=== PATIENT | female | born 1955 | race Caucasian/White ===

== ENCOUNTER 2019-11-27 17:00 | Emergency (ER) | payer MEDICARE, MEDICAID, SELFPAY ==
[2019-11-27 17:13] VITALS: BP 115/73; PULSE 87; RESP 18; TEMP 36.7; O2SAT 96; BMI 21.5
--- NOTE | 2019-11-27 17:42 | W.ED.SKABFB ---
HPI - Skin/Abscess/Foreign Bdy General: Chief complaint: Skin/Abscess/Foreign Body Stated complaint: rash Time Seen by Provider: 11/27/19 17:37 History of Present Illness: HPI narrative: Patient contact with poison daisy other day has rash on her face and arms and it itches complaint: rash Onset (ago): day(s) Tetanus up to date: unsure Location: face, LUE and RUE Severity: moderate Associated symptoms: Deny chills, fever(s), nausea or vomiting Review of Systems Const: Denies: fever(s), chills or body aches Eyes: Denies: change in vision or blurry vision ENMT: Denies: throat pain or nasal congestion Card: Denies: chest pain or dyspnea on exertion Resp: Denies: dyspnea, productive cough or non-productive cough GI: Denies: abdominal pain, nausea or vomiting Musc: Denies: extremity pain Skin/Breast: Reports: rash Neuro: Denies: headache(s) Psych: Denies: anxiety or depression Lazaro/Lymph: Denies: easy bruising PFS ED PFSH: Social History Smoking and tobacco status: current every day smoker Physical Exam Const: COMMON NORMALS: no acute distress, average body habitus and patient oriented x3 HENMT: COMMON NORMALS: normocephalic HEAD & SCALP: normal to inspection and normocephalic FACE & SINUS: normal facial exam Eye: COMMON NORMALS: conjunctivae normal GENERAL EYE: appearance normal, both eyes and all related structures CONJUNCTIVA: Yes conjunctivae normal Neck/C-Spine: COMMON NORMALS: no JVD Chest: COMMONS NORMALS: normal inspection of the chest Resp: COMMON NORMALS: normal respiratory effort and clear to auscultation bilaterally AUSCULTATION: clear to auscultation bilaterally Cardio: COMMON NORMALS: no JVD, regular rate and regular rhythm RATE: regular rate RHYTHM: regular rhythm GI: COMMON NORMALS: Normal to inspection, nondistended, normoactive bowel sounds present Extremity: COMMON NORMALS: normal to inspection and full ROM Neuro: COMMON NORMALS: patient oriented x3 Skin: NARRATIVE SKIN EXAM: Maculopapular rash scattered across face and on both arms Course Vital Signs: Vital signs: Vital Signs Temperature 98.0 F 11/27/19 17:13 Pulse Rate 87 11/27/19 17:13 Respiratory Rate 18 11/27/19 17:13 Blood Pressure 115/73 11/27/19 17:13 Pulse Oximetry 96 11/27/19 17:13 Discharge Plan Discharge Patient Disposition: Home, Self-Care Clinical Impression: Contact dermatitis Qualifiers: Contact dermatitis type: irritant Contact dermatitis trigger: non-food plants Qualified Code(s): L24.7 - Irritant contact dermatitis due to plants, except food Condition: Stable Prescriptions: New Medrol (Erick) 4 mg tablets,dose pack See Rx Instructions .ROUTE .COMPLEX Qty: 21 RF: 0 hydroxyzine HCl 25 mg tablet 25 mg PO Q8H PRN (Reason: itching) Qty: 20 RF: 0 No Action methotrexate sodium 2.5 mg tablet 20 mg PO .weekly RF: 0 Humira 40 mg/0.8 mL syringe kit 40 mg SUBCUT .every two weeks RF: 0 folic acid 1 mg tablet 1 mg PO QDAY RF: 0 Januvia 50 mg tablet 50 mg PO QDAY RF: 0 calcium carbonate-vit D3-min 600 mg calcium- 400 unit tablet 1 tab PO QDAY RF: 0 fluticasone propionate 50 mcg/actuation spray,suspension 1 spray INTRANASAL QDAY RF: 0 senna 8.6 mg capsule 8.6 mg PO QDAY PRNRF: 0 aspirin [Adult Aspirin Regimen] 81 mg tablet,delayed release (DR/EC) 81 mg PO QDAY RF: 0 clopidogrel 75 mg tablet 75 mg PO QDAY RF: 0 clorazepate dipotassium 7.5 mg tablet 7.5 mg PO BID PRNRF: 0 Adult One Daily Multivitamin 0.4 mg tablet PO RF: 0 venlafaxine 150 mg capsule,extended release 24hr 150 mg PO QDAY RF: 0 Breo Ellipta 200-25 mcg/dose blister with device 1 inh INHALATION QDAY RF: 0 Breo Ellipta 100-25 mcg/dose blister with device 1 inh INHALATION QDAY RF: 0 albuterol sulfate 90 mcg/actuation HFA aerosol inhaler 2 puff INHALATION Q6H PRNRF: 0 metformin 1,000 mg tablet 1,000 mg PO BID RF: 0 trazodone 100 mg tablet 150 mg PO .daily at bedtime RF: 0 nitroglycerin [Nitrostat] 0.4 mg tablet, sublingual 0.4 mg SUBLINGUAL Q5M PRNRF: 0 Discharge Orders: Discharge Order (Routine); Ordered 11/27/19 Ordered By: Levi Carrillo Referrals: Roni Corral Jr, MD [Primary Care Provider] - Discharge Diet: Usual diet Discharge Activity: Resume usual activity Patient Instructions: Contact Dermatitis (ED) Activity Restrictions/Additional Instructions: Follow-up with medical provider as directed. Take medications as prescribed. Return to the ER or your medical provider if condition worsens. Please read and understand discharge instructions. If any questions ask please. Can use [id number] hydrocortisone cream as needed Coding Level of Care Code ED Supervisor Files for Vic King
== END 2019-11-27 18:18 | disposition home or self-care (01) ==
PROVIDERS: Emergency Provider Nurse Practitioner Family; PCP Family Medicine
DX: L24.7 Irritant contact dermatitis due to plants, except food (principal); Z79.82 Long term (current) use of aspirin; Z79.02 Long term (current) use of antithrombotics/antiplatelets; Z79.84 Long term (current) use of oral hypoglycemic drugs; F17.210 Nicotine dependence, cigarettes, uncomplicated
CPT/HCPCS: 12345; 99281

== ENCOUNTER → 2020-02-28 13:02 | Outpatient (BNVA) | payer MEDICARE, MEDICAID, SELFPAY | PROVIDERS: PCP Family Medicine; Visit Provider Internal Medicine | DX: M05.79 Rheumatoid arthritis with rheumatoid factor of multiple sites without organ or systems involvement (principal); Z11.59 Encounter for screening for other viral diseases; Z11.1 Encounter for screening for respiratory tuberculosis; Z79.899 Other long term (current) drug therapy; F17.210 Nicotine dependence, cigarettes, uncomplicated | CPT/HCPCS: 36415; 80053; 85651; 86140; 86480; 86705; 86803; 87340; 99213 ==

== ENCOUNTER 2020-05-24 12:58 | Outpatient (CLI) | payer MEDICARE, MEDICAID, SELFPAY ==
[2020-05-24 13:08] VITALS: BP 112/76; PULSE 96; RESP 16; TEMP 36.3; O2SAT 96
--- NOTE | 2020-05-24 14:15 | PC.NURSE ---
1400 Dr. Pizano in room seeing pt.
[2020-05-24 14:46] VITALS: BP 109/71; PULSE 81; RESP 16; O2SAT 95
== END 2020-05-24 12:59 | disposition home or self-care (01) ==
LOC: RHEOACUTE 12:59
PROVIDERS: PCP Family Medicine; Visit Provider Internal Medicine
DX: M05.79 Rheumatoid arthritis with rheumatoid factor of multiple sites without organ or systems involvement (principal); Z79.899 Other long term (current) drug therapy; R25.2 Cramp and spasm
CPT/HCPCS: 80053; 83735; 85025; 96365; 99213; J1602

== ENCOUNTER 2020-07-02 11:16 | Outpatient (CLI) | payer MEDICARE, MEDICAID, SELFPAY ==
[2020-07-02 11:27] VITALS: BP 104/68; PULSE 81; RESP 16; TEMP 36.1; O2SAT 94
[2020-07-02 11:28] VITALS: BMI 20.9
[2020-07-02 12:53] VITALS: BP 114/70; PULSE 80; RESP 16; O2SAT 94
== END 2020-07-02 11:17 | disposition home or self-care (01) ==
LOC: RHEOACUTE 11:18
PROVIDERS: PCP Family Medicine; Visit Provider Internal Medicine
DX: M05.79 Rheumatoid arthritis with rheumatoid factor of multiple sites without organ or systems involvement (principal)
CPT/HCPCS: 96365; J1200; J1602; J2920; J7040

== ENCOUNTER 2021-01-03 19:32 | Emergency (ER) | payer MEDICARE, MEDICAID, SELFPAY ==
[2021-01-03 19:38] VITALS: BP 112/72; PULSE 89; RESP 18; TEMP 36.6; O2SAT 95; BMI 20.7
--- NOTE | 2021-01-03 19:38 | XRR_ITS ---
PROCEDURE INFORMATION: Exam: XR Chest Exam date and time: 01/03/2021 7:38 PM Age: 65 years old Clinical indication: Cough and shortness of breath; Sternal or substernal pain; Prior surgery; Surgery type: Stents; Additional info: Cp TECHNIQUE: Imaging protocol: XR of the chest. Views: 1 view. COMPARISON: CR Chest 2 views* [id number] 05/13/2019 3:32 PM FINDINGS: Lungs: Emphysematous changes. Left lower lobe atelectasis versus minimal infiltrate. Pleural spaces: Unremarkable. No pleural effusion. No pneumothorax. Heart/Mediastinum: Unremarkable. No cardiomegaly. Bones/joints: Unremarkable. XR/XR chest 1V portable [id number] IMPRESSION: 1. Emphysematous changes. 2. Left lower lobe atelectasis versus minimal infiltrate.
[2021-01-03 20:21] LABS: Basophils # 0.1 10^3/uL (0.0-0.1); Basophils % 0.7 %; Eosinophils # 0.1 10^3/uL (0.0-0.8); Eosinophils % 1.2 %; Hematocrit 50.5 % (37.0-47.0); Hemoglobin 14.6 g/dL (11.5-15.3); Lymphocytes # 1.9 10^3/uL (0.8-4.8); Lymphocytes % 23.9 %; Mean Corpuscular HGB Conc 28.9 g/dL (30.0-36.0); Mean Corpuscular Hemoglobin 30.4 pg (28.0-34.0); Mean Platelet Volume 9.2 fL (7.4-10.4); Monocytes # 0.6 10^3/uL (0.2-0.9); Monocytes % 7.2 %; Neutrophils # 5.34 10^3/uL (1.8-7.7); Neutrophils % 66.8 %; Nucleated Red Blood Cells % 0 %; Platelet Count 242 10^3/cmm (130-400); Red Blood Count 4.81 10^6/uL (4.1-5.3); Red Cell Distribution Width 13.6 % (12.1-15.1)
[2021-01-03 20:49] LABS: Alanine Aminotransferase 13 U/L (0-33); Albumin Level 3.8 g/dL (3.5-5.2); Alkaline Phosphatase 157 IU/L (35-105); Anion Gap 16.4 (5-19); Aspartate Amino Transferase 14 U/L (0-32); Blood Urea Nitrogen 9 mg/dL (8-23); Calcium 8.7 mg/dL (8.5-10.5); Carbon Dioxide 24 mmol/L (22-29); Chloride 98 mmol/L (98-107); Globulin 2.2 g/dL (1.3-4.6); Glucose 360 mg/dL (65-115); Osmolality Calculated 291 mOsm/kg (285-295); Potassium 4.4 mmol/L (3.5-5.1); Sodium 134 mmol/L (136-145); Total Bilirubin 0.4 mg/dL (0.15-1.2)
[2021-01-03 20:54] LABS: Troponin(5th) Baseline 234 ng/L (0-10)
--- NOTE | 2021-01-03 21:00 | ED_ITS ---
HPI - Chest Pain General: Chief Complaint: Chest Pain Stated Complaint: CP x2days Time Seen by Provider: 01/03/21 20:56 History of Present Illness: HPI narrative: This patient is a 65-year-old female who presents to the emergency department after developing chest pain this morning. Patient has a long history of cardiac disease and has multiple stents in the past both in her heart and her aorta. Patient states she complains of fatigue. EKG on arrival was unremarkable no ST elevation. However patient's initial troponin 235 in the waiting room. Patient concerning for non-STEMI. We will continue medical evaluation treat as needed. Awaiting return of cardiology Dr. Kohn. GONZALEZ complaint: chest pain, chest heaviness and chest discomfort Pertinent past history: coronary artery disease and prior [place] Onset (ago): hour(s) Timing of current episode: constant Pain location: substernal Relieving factors: nothing Exacerbating factors: nothing Associated symptoms: Deny abdominal pain, dyspnea, fever(s), nausea, palpitations or vomiting Review of Systems General: Reports: 10 or more systems reviewed and unremarkable except in HPI and below Const: Denies: fever(s), chills, body aches or fatigue Eyes: Denies: change in vision or blurry vision ENMT: Denies: throat pain, hoarseness or mouth pain Card: Reports: chest pain; Denies: palpitations, irregular heart rhythm, edema, swelling of feet/ankles or lightheadedness Resp: Denies: dyspnea, productive cough, non-productive cough, wheezing or pain on inspiration GI: Denies: abdominal pain, nausea or vomiting : Denies: flank pain, difficulty voiding, dysuria, urinary frequency, urinary urgency or urinary hesitancy Musc: Denies: neck pain, back pain, extremity pain, extremity swelling, joint pain, joint swelling, joint redness, joint warmth or limited range of motion Skin/Breast: Denies: rash, pruritus, erythema or skin tenderness Neuro: Denies: headache(s), numbness in extremities or weakness in extremities Psych: Denies: anxiety or depression PFSH ED PFSH: Social History Smoking and tobacco status: current every day smoker Alcohol intake: never History of recent travel: No Physical Exam Const: COMMON NORMALS: no acute distress, average body habitus, patient oriented x3, no limitations, healthy appearing, alert and well nourished HENMT: COMMON NORMALS: normocephalic, atraumatic, hearing grossly normal bilaterally, external ears normal, EAC's normal, TM's normal bilaterally, Normal external nose present, Normal nasal mucous membranes and turbinates present, moist oral mucous membranes, oropharynx normal, dentition normal and gingiva normal HEAD & SCALP: normocephalic and atraumatic NOSE: Normal external nose present and Normal nasal mucous membranes and turbinates present EXTERNAL EAR: Yes external ears normal EXTERNAL AUDITORY CANAL: EAC's normal TYMPANIC MEMBRANE: TM's normal bilaterally Neck/C-Spine: COMMON NORMALS: full ROM, no lymphadenopathy, supple, no meningeal signs, no JVD, Thyroid normal and No carotid bruits THYROID: Thyroid normal Chest: COMMONS NORMALS: normal inspection of the chest, normal palpation of entire chest wall, normal inspection of the breasts and normal palpation of the breasts Breast/axilla inspection: Yes normal inspection of the breasts BREAST/AXILLA PALPATION: Yes normal palpation of the breasts Resp: COMMON NORMALS: normal respiratory effort, No retractions, No use of accessory muscles, clear to auscultation bilaterally and percussion normal AUSCULTATION: clear to auscultation bilaterally PERCUSSION: percussion normal Cardio: COMMON NORMALS: no JVD, regular rate, regular rhythm, S1 normal heart sound present, S2 normal heart sound present, No gallops present (Cardio), No clicks present (Cardio), No murmurs present (Cardio), No rub (Cardio) and Peripheral pulses 2+ throughout RATE: regular rate RHYTHM: regular rhythm HEART SOUNDS: S1 normal heart sound present and S2 normal heart sound present PERIPHERAL PULSES: Peripheral pulses 2+ throughout GI: COMMON NORMALS: Normal to inspection, nondistended, normoactive bowel sounds present, Soft to palpation, non-tender, No hepatosplenomegaly present, no masses and no bruits PALPATION: Yes Soft to palpation and Yes No hepatosplenomegaly present Back/Pelvis: COMMON NORMALS: thoracic and lumbar spine normal to inspection, no thoracic nor lumbar tenderness, thoraco-lumbar ROM normal and straight leg raise negative bilaterally Extremity: COMMON NORMALS: normal to inspection, full ROM, capillary refill normal, no joint enlargement, no clubbing, cyanosis or edema, no calf tenderness and no pedal edema Neuro: COMMON NORMALS: patient oriented x3 SENSORIUM/ORIENTATION: Yes alert MENINGEAL SIGNS: Yes no meningeal signs Course Reevaluation(s): Reevaluation #1: I did discuss with patient and family about findings. They are agreeable for transfer. They understand it could take some time due to no beds available. [place]. Patient be started on heparin. Time: 21:59 Consultations: Consultation #1: I did discuss at length with Dr. Larsen cardiology at [facility]. He is accepted this patient for transfer. He agrees with aspirin Plavix and heparin drip. He will see patient upon arrival right additional orders Time: 21:59 Vital Signs: Vital signs: Vital Signs Temperature 97.9 F 01/03/21 19:38 Pulse Rate 87 01/03/21 21:48 Respiratory Rate 17 01/03/21 21:48 Blood Pressure 112/77 01/03/21 21:48 Pulse Oximetry 97 01/03/21 21:48 MDM - Chest Pain MDM Narrative: Medical decision making narrative: This patient is a 65-year- old female who presents to the emergency department after developing chest pain this morning. Patient has a long history of cardiac disease and has multiple stents in the past both in her heart and her aorta. Patient states she complains of fatigue. EKG on arrival was unremarkable no ST elevation. However patient's initial troponin 235 in the waiting room. Patient concerning for non- STEMI. We will continue medical evaluation treat as needed. Awaiting return of cardiology Dr. Velazquez. I did discuss with patient and family about findings. They are agreeable for transfer. They understand it could take some time due to no beds available. [place]. Patient be started on heparin. I did discuss at length with Dr. Larsen cardiology at [facility]. He is accepted this patient for transfer. He agrees with aspirin Plavix and heparin drip. He will see patient upon arrival right additional orders Medical Records: Attestation: I reviewed the patient's medical records. Lab Data: Attestation: I reviewed the patient's lab results. Labs: Lab Results 01/03/21 01/03/21 01/03/21 Range/Units 20:01 20:01 20:01 WBC 8.0 (4.0-10.0) 10^3/ uL RBC 4.81 (4.1-5.3) 10^6/u L Hgb 14.6 (11.5-15.3) g/dL Hct 50.5 H (37.0-47.0) % MCV 105.0 H (81-99) fL MCH 30.4 (28.0-34.0) pg MCHC 28.9 L (30.0-36.0) g/dL RDW 13.6 (12.1-15.1) % Plt Count 242 (130-400) 10^3/c mm MPV 9.2 (7.4-10.4) fL Neut % (Auto) 66.8 % Lymph % (Auto) 23.9 % [place] % (Auto) 7.2 % Eos % (Auto) 1.2 % Baso % (Auto) 0.7 % Neut # (Auto) 5.34 (1.8-7.7) 10^3/u L Lymph # (Auto) 1.9 (0.8-4.8) 10^3/u L [place] # (Auto) 0.6 (0.2-0.9) 10^3/u L Eos # (Auto) 0.1 (0.0-0.8) 10^3/u L Baso # (Auto) 0.1 (0.0-0.1) 10^3/u L Nucleated RBC % (a uto) 0 % Nucleated RBCs # 0.0 /100WBC Sodium 134 L (136-145) mmol/L Potassium 4.4 (3.5-5.1) mmol/L Chloride 98 (98-107) mmol/L Carbon Dioxide 24 (22-29) mmol/L Anion Gap 16.4 (5-19) BUN 9 (8-23) mg/dL Creatinine 0.7 (0.5-0.9) mg/dL GFR Calculation 84.0 L (90-130) mL/min Glucose 360 H (65-115) mg/dL Calculated Osmolal ity 291 (285-295) mOsm/k g Calcium 8.7 (8.5-10.5) mg/dL Total Bilirubin 0.4 (0.15-1.2) mg/dL AST 14 (0-32) U/L ALT 13 (0-33) U/L Alkaline Phosphata se 157 H (35-105) IU/L Troponin T Baselin e 234 H* (0-10) ng/L Total Protein 6.0 L (6.6-8.7) g/dL Albumin 3.8 (3.5-5.2) g/dL Globulin 2.2 (1.3-4.6) g/dL EKG Data^: EKG 1: Attestation: I personally reviewed and interpreted this EKG as follows: EKG interpretation date: 01/03/21 EKG interpretation time: 19:36 Prior EKG tracings: not available for review Ischemic changes: non-specific ST-T wave changes Interpretation: Sinus rhythm heart rate 98 nonspecific EKG EKG 2: Attestation: I personally reviewed and interpreted this EKG as follows: EKG interpretation date: 01/03/21 EKG interpretation time: 21:30 Prior EKG tracings: not available for review Interpretation: Sinus rhythm or rate 82 nonspecific EKG changes. Discharge Plan Discharge Patient Disposition: Xfer Short-Term Hosp Clinical Impression: Non-ST elevated myocardial infarction (non-STEMI), Coronary artery disease, Peripheral arterial disease, Smoking Condition: Stable Prescriptions: No Action Januvia 50 mg tablet 50 mg PO QDAY RF: 0 calcium carbonate-vit D3-min 600 mg calcium- 400 unit tablet 1 tab PO DAILY RF: 0 fluticasone propionate 50 mcg/actuation spray,suspension 1 spray INTRANASAL DAILY RF: 0 aspirin [Adult Aspirin Regimen] 81 mg tablet,delayed release (DR/EC) 81 mg PO QDAY RF: 0 clopidogrel 75 mg tablet 75 mg PO DAILY RF: 0 venlafaxine 150 mg capsule,extended release 24hr 150 mg PO QDAY RF: 0 albuterol sulfate 90 mcg/actuation HFA aerosol inhaler 2 puff INHALATION Q6H PRN (Reason: Shortness Of Breath) RF: 0 metformin 1,000 mg tablet 1,000 mg PO BID RF: 0 trazodone 100 mg tablet 150 mg PO BEDTIME RF: 0 nitroglycerin [Nitrostat] 0.4 mg tablet, sublingual 0.4 mg SUBLINGUAL Q5M PRN (Reason: Chest Pain) RF: 0 Remicade 100 mg recon soln 191 mg IVP ONCE Qty: 1 RF: 0 folic acid 1 mg tablet 2 mg PO DAILY Qty: 180 RF: 1 Simponi ARIA 12.5 mg/mL solution 91 mg IV ONCE Qty: 4 RF: 0 hydroxyzine HCl 25 mg tablet 25 mg PO Q8H PRN (Reason: itching) Qty: 20 RF: 0 methotrexate sodium 2.5 mg tablet 20 mg PO Q7D RF: 0 Coding Level of Care Code ED Decision Analyst for Chg Fwd Exam Comprehensive
[2021-01-03] MEDS: aspirin 81 mg Chew Tablet 324 MG PO (21:10)
[2021-01-03 21:11] VITALS: BP 112/77; PULSE 89; RESP 18; O2SAT 94
[2021-01-03] MEDS: heparin 5,000 unit/mL INJ 1 mL 3500 UNIT IVP (21:12)
[2021-01-03] MEDS: clopidogrel 300 mg Tablet PO (21:21)
--- NOTE | 2021-01-03 21:38 | ECG_ITS ---
[facility] Test Date: 2021-01-03 Pat Name: Leonie Farooq Department: Room: Gender: Female Adult Basic Education Instructor: : 1955 Requested By: Ann Marie Escalante Order Number: [id number] Radha MD: Sergio Miller M.D. Measurements Intervals [place] Rate: 82 P: 67 AR: 147 QRS: 84 QRSD: 77 T: 70 QT: 352 QTc: 413 Interpretive Statements SINUS RHYTHM ST DEVIATION AND MODERATE T-WAVE ABNORMALITY, CONSIDER ANTERIOR ISCHEMIA [-0.1+ mV T WAVE IN V3/V4] Compared to ECG 04/04/2018 16:46:34 Possible ischemia now present T-wave abnormality still present Electronically Signed On 01-03-2021 23:45:19 CDT by Sergio Miller M.D. [id number]
[2021-01-03 21:48] VITALS: BP 112/77; PULSE 87; RESP 17; O2SAT 97
[2021-01-03 21:59] LABS: NT Pro B Type Natriuretic Pept 3066 pg/mL (0-125)
[2021-01-03 22:52] VITALS: BP 123/79; PULSE 83; RESP 15; O2SAT 97
[2021-01-03 22:54] VITALS: BP 123/79; PULSE 87; RESP 17; O2SAT 97
[2021-01-03 23:56] LABS: INR 0.97 (0.8-1.2)
[2021-01-03 23:57] LABS: Partial Thromboplastin Time 45.4 SECONDS (23.9-36.7)
== END 2021-01-03 23:52 | disposition short-term general hospital (02) ==
PROVIDERS: Emergency Medicine; Emergency Provider Emergency Medicine
DX: I21.4 Non-ST elevation (NSTEMI) myocardial infarction (principal); I25.10 Atherosclerotic heart disease of native coronary artery without angina pectoris; I73.9 Peripheral vascular disease, unspecified; F17.210 Nicotine dependence, cigarettes, uncomplicated; Z79.82 Long term (current) use of aspirin; Z79.02 Long term (current) use of antithrombotics/antiplatelets; Z79.84 Long term (current) use of oral hypoglycemic drugs
CPT/HCPCS: 36415; 71045; 80053; 83880; 84484; 85025; 85610; 85730; 93005; 96374; 99285; J1644

== ENCOUNTER → 2021-08-07 10:51 | Outpatient (BNVA) | payer MEDICARE, MEDICAID, SELFPAY | PROVIDERS: Visit Provider Internal Medicine | DX: M05.79 Rheumatoid arthritis with rheumatoid factor of multiple sites without organ or systems involvement (principal); Z79.899 Other long term (current) drug therapy; R05.3 Chronic cough; R06.00 Dyspnea, unspecified; F17.200 Nicotine dependence, unspecified, uncomplicated | CPT/HCPCS: 99214 ==

== ENCOUNTER 2021-08-07 12:26 | Outpatient (CLI) | payer BC, SELFPAY ==
[2021-08-07 12:49] LABS: Basophils % 0.3 %; Eosinophils # 0.1 10^3/uL (0.0-0.8); Eosinophils % 1.1 %; Hematocrit 50.8 % (37.0-47.0); Hemoglobin 16.3 g/dL (11.5-15.3); Lymphocytes # 2.5 10^3/uL (0.8-4.8); Lymphocytes % 21.6 %; Mean Corpuscular HGB Conc 32.1 g/dL (30.0-36.0); Mean Corpuscular Volume 90.4 fl (81-99); Mean Platelet Volume 9.1 fL (7.4-10.4); Monocytes # 0.7 10^3/uL (0.2-0.9); Monocytes % 6.3 %; Neutrophils # 8.18 10^3/uL (1.8-7.7); Neutrophils % 70.4 %; Nucleated Red Blood Cells % 0 %; Platelet Count 413 10^3/cmm (130-400); Red Blood Count 5.62 10^6/uL (4.1-5.3); White Blood Count 11.6 10^3/uL (4.0-10.0)
[2021-08-07 13:08] LABS: Alanine Aminotransferase 16 U/L (0-33); Albumin Level 4.3 g/dL (3.5-5.2); Alkaline Phosphatase 199 IU/L (35-105); Aspartate Amino Transferase 13 U/L (0-32); Blood Urea Nitrogen 12 mg/dL (8-23); Carbon Dioxide 22 mmol/L (22-29); Chloride 95 mmol/L (98-107); Globulin 3.5 g/dL (1.3-4.6); Glucose 248 mg/dL (65-115); Osmolality Calculated 280 mOsm/kg (285-295); Sodium 131 mmol/L (136-145); Total Bilirubin 0.7 mg/dL (0.15-1.2); Total Protein 7.8 g/dL (6.6-8.7)
[2021-08-07 13:10] LABS: Anion Gap 18.6 (5-19); Potassium 4.6 mmol/L (3.5-5.1)
== END 2021-08-07 12:27 | disposition home or self-care (01) ==
LOC: LAB 12:33
PROVIDERS: PCP Nurse Practitioner Family; Visit Provider Internal Medicine
DX: F17.200 Nicotine dependence, unspecified, uncomplicated (principal); I25.10 Atherosclerotic heart disease of native coronary artery without angina pectoris; I73.9 Peripheral vascular disease, unspecified; M05.79 Rheumatoid arthritis with rheumatoid factor of multiple sites without organ or systems involvement; Z79.899 Other long term (current) drug therapy
CPT/HCPCS: 80053; 85025